=== PATIENT | female | born 1990 ===

== ENCOUNTER 2018-06-10 20:09 | Emergency (ER) | payer BC ==
[2018-06-10] MEDS ORDERED: Albuterol/Ipratropium 3.0-0.5 MG/3 ML Neb Soln NEB ONE (20:13)
--- NOTE | 2018-06-10 20:23 | EDM.PDOC ---
ED HPI GENERAL MEDICAL PROBLEM - General Chief Complaint: Respiratory Problem Stated Complaint: CHEST TIGHTNESS Time Seen by Provider: 06/10/18 20:16 Source of Information: Reports: Patient History Limitations: Reports: No Limitations - History of Present Illness INITIAL COMMENTS - FREE TEXT/NARRATIVE: HISTORY AND PHYSICAL: History of present illness: Patient is a 28-year-old female who presents to the emergency room with complaints of chest tightness to the left anterior chest and states it radiates into her back. She does have some dyspnea associated with this. Denies any fever , chills, shortness of breath or cough. She states she is supposed to see headache runs all on Wednesday for a well woman exam, concerns of STDs and concerns of a UTI. She has had frequency and dysuria. She denies any abdominal pain, vomiting, diarrhea, constipation or dysuria. Review of systems: As per history of present illness and below otherwise all systems reviewed and negative. Past medical history: As per history of present illness and as reviewed below otherwise noncontributory. Surgical history: As per history of present illness and as reviewed below otherwise noncontributory. Social history: See social history for further information Family history: As per history of present illness and as reviewed below otherwise noncontributory. Physical exam: General: Well-developed and well-nourished 28-year-old female. Alert and oriented. Nontoxic appearing and in no acute distress. HEENT: Atraumatic, normocephalic, pupils equal and reactive bilaterally, negative for conjunctival pallor or scleral icterus, mucous membranes moist, TMs normal bilaterally, throat clear, neck supple, nontender, trachea midline. No drooling or trismus noted. No meningeal signs. No hot potato voice noted. Lungs: Clear to auscultation, breath sounds equal bilaterally, chest nontender. Heart: S1S2, regular rate and rhythm without overt murmur Abdomen: Soft, nondistended, nontender. Negative for masses or hepatosplenomegaly. Mild left sided costovertebral tenderness. Pelvis: Stable nontender. Genitourinary: Deferred. Rectal: Deferred. Skin: Intact, warm, dry. No lesions or rashes noted. Extremities: Atraumatic, negative for cords or calf pain. Neurovascular unremarkable. Neuro: Awake, alert, oriented. Cranial nerves II through XII unremarkable. Cerebellum unremarkable. Motor and sensory unremarkable throughout. Exam nonfocal. Diagnostics: 2 view chest, UA, hCG U Therapeutics: DuoNeb Prescription: Cipro Pyridium Impression: UTI Plan: 1. Please take the antibiotic as prescribed. 2. Tylenol and/or ibuprofen as needed for pain management. 3. Keep your appointment with Misa Licona. Return to the ED as needed and as discussed. Definitive disposition and diagnosis as appropriate pending reevaluation and review of above. left side chest/flank Pain Score (Numeric/FACES): 8 - Related Data Allergies Allergy/AdvReac Type Severity Reaction Status Date / Time No Known Allergies Allergy Verified 06/10/18 20:24 Home Meds: Home Meds . [No Known Home Meds] 06/10/18 [History] ED ROS GENERAL - Review of Systems Review Of Systems: ROS reveals no pertinent complaints other than HPI. ED EXAM, GENERAL - Physical Exam Exam: See Below (See dictation) Course - Vital Signs Last Recorded V/S: Last Vital Signs Temp 97 F 06/10/18 20:24 Pulse 93 06/10/18 20:24 Resp 15 06/10/18 20:24 BP 138/93 H 06/10/18 20:24 Pulse Ox 98 06/10/18 20:24 - Orders/Labs/Meds Orders: Active Orders 24 hr Category Date Time Status RT Aerosol Therapy [RC] ASDIRECTED Care 06/10/18 20:13 Active Chest 2V [CR] Stat Exams 06/10/18 20:14 Ordered Labs: Laboratory Tests 06/10/18 06/10/18 Range/Units 20:28 20:28 Urine Color YELLOW Urine Appearance HAZY Urine pH 6.5 (5.0-8.0) Ur Specific Adin 1.015 (1.001-1.035) Urine Protein 30 H (NEGATIVE) mg/dL Urine Glucose (UA) NEGATIVE (NEGATIVE) mg/dL Urine Ketones NEGATIVE (NEGATIVE) mg/dL Urine Occult Blood LARGE H (NEGATIVE) Urine Nitrite NEGATIVE (NEGATIVE) Urine Bilirubin NEGATIVE (NEGATIVE) Urine Urobilinogen 0.2 (<2.0) EU/dL Ur Leukocyte Esterase MODERATE H (NEGATIVE) Urine RBC 1-2 (0-2/HPF) Urine WBC 8-10 (0-5/HPF) Ur Epithelial Cells RARE (NONE-FEW) Urine Bacteria 1+ H (NEGATIVE) Urine HCG, Qual NEGATIVE (NEGATIVE) Meds: Medications Discontinued Medications Generic Name Dose Route Start Last Admin Trade Name Placido PRN Reason Stop Dose Admin Albuterol/Ipratropium 3 ml 06/10/18 20:13 06/10/18 20:45 Duoneb 3.0-0.5 Mg/3 Ml NEB 06/10/18 20:14 3 ml ONETIME ONE Administration Departure - Departure Time of Disposition: 20:57 Disposition: Home, Self-Care 01 Clinical Impression: UTI (urinary tract infection) Qualifiers: Urinary tract infection type: acute cystitis Hematuria presence: without hematuria Qualified Code(s): N30.00 - Acute cystitis without hematuria - Discharge Information Instructions: Urinary Tract Infection, Adult, [id number] Referrals: Misa Licona SEWER [Primary Care Provider] - Forms: ED Department Discharge Additional Instructions: The following information is given to patients seen in the emergency department who are being discharged to home. This information is to outline your options for follow-up care. We provide all patients seen in our emergency department with a follow-up referral. The need for follow-up, as well as the timing and circumstances, are variable depending upon the specifics of your emergency department visit. If you don't have a primary care physician on staff, we will provide you with a referral. We always advise you to contact your personal physician following an emergency department visit to inform them of the circumstance of the visit and for follow-up with them and/or the need for any referrals to a consulting specialist. The emergency department will also refer you to a specialist when appropriate. This referral assures that you have the opportunity for follow-up care with a specialist. All of these measure are taken in an effort to provide you with optimal care, which includes your follow-up. Under all circumstances we always encourage you to contact your private physician who remains a resource for coordinating your care. When calling for follow-up care, please make the office aware that this follow-up is from your recent emergency room visit. If for any reason you are refused follow-up, please contact the [facility] Emergency Department at and asked to speak to the emergency department charge nurse. [facility] [address] [place] [id number] [id number] 1. Please take the antibiotic as prescribed. 2. Tylenol and/or ibuprofen as needed for pain management. 3. Keep your appointment with Misa Licona. Return to the ED as needed and as discussed. - My Orders Last 24 Hours: My Active Orders 06/10/18 20:13 RT Aerosol Therapy [RC] ASDIRECTED 06/10/18 20:14 Chest 2V [CR] Stat - Assessment/Plan Last 24 Hours: My Active Orders 06/10/18 20:13 RT Aerosol Therapy [RC] ASDIRECTED 06/10/18 20:14 Chest 2V [CR] Stat
--- NOTE | 2018-06-10 21:20 | CR ---
INDICATION: Shortness of breath with atraumatic left sided chest pain COMPARISON: None available. FINDINGS: PA and lateral views of the chest were obtained. The lungs are clear. No focal or diffuse infiltrates are present. The heart is normal in size. The mediastinum is normal in appearance. The osseous structures are normal in appearance for the patient`s age. IMPRESSION: NORMAL CHEST 2 VIEWS. Dictated by Shawn Camara MD @ Jun 10 2018 9:17PM Signed by Dr. Shawn Camara @ Jun 10 2018 9:18PM
== END 2018-06-10 21:06 | disposition home or self-care (01) ==
LOC: MW.ED 20:09
DX: N30.00 Acute cystitis without hematuria (principal); R07.9 Chest pain, unspecified; R06.00 Dyspnea, unspecified
CPT/HCPCS: 71046; 71046-26; 81001; 81025; 94640; 99284-25; J7620-GY